=== PATIENT | male | born 1955 | race Hispanic/Latino ===

== ENCOUNTER 2024-09-05 05:07 | Observation (INO) | payer MEDICARE ==
[2024-09-03 10:32] LABS: BASOPHILS # (AUTO) 0.1 (0.0-0.1); BASOPHILS % 0.7 % (0.0-1.0); EOSINOPHILS # (AUTO) 0.2 (0.0-0.4); EOSINOPHILS % 2.3 % (0.0-6.0); HEMATOCRIT 39.6 % (38.2-49.6); HEMOGLOBIN 12.7 g/dL (14.0-18.0); LYMPHOCYTES # (AUTO) 2.1 (1.0-3.2); MEAN CORPUSCULAR HEMOGLOBIN 31.1 pg (28-32); MEAN CORPUSCULAR HGB CONC 32.1 g/dL (31-35); MEAN CORPUSCULAR VOLUME 96.8 fL (81-99); MONOCYTES # (AUTO) 0.5 (0.2-0.8); MONOCYTES % 6.8 % (4.4-11.3); NEUTROPHILS # (AUTO) 4.2 (2.1-6.9); NEUTROPHILS % 59.9 % (38.7-80.0); PLATELET COUNT 260 x10e3/uL (140-360); RED BLOOD COUNT 4.09 x10e6/uL (4.3-5.7); RED CELL DISTRIBUTION WIDTH 14.7 % (11.7-14.4); WHITE BLOOD COUNT 7.06 x10e3/uL (4.8-10.8)
[2024-09-03 10:53] LABS: INR 1.01; PARTIAL THROMBOPLASTIN TIME 28.4 seconds (23.8-35.5); PROTHROMBIN TIME 13.9 seconds (11.9-14.5)
[2024-09-03 11:01] LABS: CALCIUM 9.4 mg/dL (8.4-10.2); CREATININE, SERUM 1.3 mg/dL (0.72-1.25)
[~2024-09-05] VITALS: Ht 170.2 cm; Wt 89.8 kg
[~2024-09-05 05:07] MED LIST: ALLOPURINOL300 MG PO; ATORVASTATIN CA20 MG PO; FAMOTIDINE20 MG PO; FLOMAX0.4 MG PO; GABAPENTIN300 MG PO; NAPROXEN250 MG PO; OMEPRAZOLE40 MG PO; VASOTEC10 M1 PO; VITAMIN D250 MCG PO
[2024-09-05] MEDS: CEFAZOLIN SODIUM 2 GM ONE (06:15)
[2024-09-05] MEDS: LACTATED RINGER'S 1,000 ML ONE (06:15)
[2024-09-05] MEDS ORDERED: DEXMEDETOMIDINE HCL 2 ML ONE (07:08)
[2024-09-05] MEDS ORDERED: ACETAMINOPHEN 1000 MG/100 ML 100 ML IV ONE (07:08)
[2024-09-05] MEDS ORDERED: MIDAZOLAM HCL 2 MG/2 ML VIAL ONE (07:08)
[2024-09-05] MEDS ORDERED: ROCURONIUM BROMIDE 1 ML IV ONE (07:08)
[2024-09-05] MEDS ORDERED: LIDOCAINE HCL 2% LOCAL INJ 5 ML SDV VIAL INJ ONE (07:08)
[2024-09-05] MEDS ORDERED: SEVOFLURANE INHAL SOLN 250 ML PEN BTL ONE (07:08)
[2024-09-05] MEDS ORDERED: SODIUM CHLORIDE 0.9% 100 ML ONE (07:08)
[2024-09-05] MEDS ORDERED: PROPOFOL IV EMULSION 10 MG/ML 20 ML VIAL ONE (07:08)
[2024-09-05] MEDS ORDERED: FENTANYL CITRATE/PF 100MCG/2 ML INJ ONE (07:08)
[2024-09-05] MEDS ORDERED: KETAMINE 50MG/5ML SYR ONE (07:11)
[2024-09-05] MEDS ORDERED: FAMOTIDINE 20 MG/2 ML VIAL IV ONE (07:39)
[2024-09-05] MEDS ORDERED: ONDANSETRON HCL INJ 2MG/ML 2ML 2 MG/ML VIAL ONE (07:40)
[2024-09-05] MEDS ORDERED: DEXAMETHASONE SOD PHOS INJ 4 MG/ML SDV ONE (07:41)
[2024-09-05] MEDS ORDERED: SUGAMMADEX SODIUM 200 MG/2 ML VIAL IV ONE (08:20)
[2024-09-05] MEDS ORDERED: EPHEDRINE SULFATE INJ 50 MG/ML VIAL ONE (08:31)
[2024-09-05] MEDS ORDERED: VASOPRESSIN INJ 20 UNIT/ML VIAL ONE (09:02)
[2024-09-05] MEDS ORDERED: LACTATED RINGER'S 1,000 ML ONE (09:04)
[2024-09-05] MEDS ORDERED: HYDROCODON-ACE1 EA12 PO (09:52)
[2024-09-05] MEDS: FENTANYL CITRATE/PF 100MCG/2 ML INJ ONE (09:55)
[2024-09-05] MEDS ORDERED: ACETAMINOPHEN 325 MG TAB PO PRN (10:00)
[2024-09-05] MEDS ORDERED: PROMETHAZINE HCL (IM) 25 MG/ML VIAL IM PRN (10:00)
[2024-09-05] MEDS ORDERED: ZOLPIDEM TARTRATE 5 MG TAB PO PRN (10:00)
[2024-09-05] MEDS ORDERED: MAGNESIUM/ALUMINUM/SIMETHICONE 30 ML UDC PO PRN (10:00)
[2024-09-05] MEDS ORDERED: MORPHINE SULFATE 5 MG/ML VIAL IM PRN (10:00)
[2024-09-05] MEDS: ONDANSETRON HCL INJ 2MG/ML 2ML 2 MG/ML VIAL IV PRN (11:20)
[2024-09-05] MEDS: LACTATED RINGER'S 1,000 ML IV SCH (11:20)
[2024-09-05] MEDS: HYDROMORPHONE 2MG/ML IV PRN (11:20)
[2024-09-05 11:30] VITALS: BP 133/75; PULSE 64; RESP 18; TEMP 98; O2SAT 100
[2024-09-05 13:05] VITALS: BP 133/75; PULSE 64; RESP 18; TEMP 98; O2SAT 100
[2024-09-05] MEDS: CARISOPRODOL 350 MG TAB PO PRN (13:20)
[2024-09-05] MEDS: OXYCODONE/ACETAMINOPHEN 5-325 1 EACH TABLET PO PRN (13:20)
[2024-09-05 19:28] VITALS: BP 140/71; PULSE 78; RESP 18; TEMP 97.9; O2SAT 96
[2024-09-05 20:00] VITALS: BP 140/71; PULSE 78; RESP 18; TEMP 97.9; O2SAT 96
[2024-09-05] MEDS: FAMOTIDINE 20 MG TAB PO SCH (21:31)
[2024-09-05] MEDS: ATORVASTATIN 20 MG TAB PO SCH (21:31)
[2024-09-05] MEDS: ENALAPRIL MALEATE 10 MG TAB PO SCH (21:32)
[2024-09-05 23:15] VITALS: BP 109/70; PULSE 67; RESP 18; TEMP 97.8; O2SAT 99
[2024-09-06 03:26] VITALS: BP 133/91; PULSE 63; RESP 18; TEMP 97.8; O2SAT 98
[2024-09-06] MEDS: PANTOPRAZOLE SODIUM 20 MG TABLET.DR PO SCH (07:32)
[2024-09-06] MEDS: GABAPENTIN 300 MG CAP PO SCH (07:32)
[2024-09-06] MEDS: TAMSULOSIN HCL 0.4 MG CAP PO SCH (07:32)
[2024-09-06] MEDS: ALLOPURINOL 300 MG TAB PO SCH (07:32)
[2024-09-06 07:50] VITALS: BP 142/77; PULSE 62; RESP 18; TEMP 97.9; O2SAT 96
[2024-09-06 07:51] VITALS: BP 142/77; PULSE 62; RESP 18; TEMP 97.9; O2SAT 96
== END 2024-09-06 10:45 | disposition home or self-care (01) ==
LOC: OR 05:07 → PACU V 09:50 → MED/SURG 10:44
PROVIDERS: ADMIT Neurological Surgery; ATTEND Neurological Surgery
DX: M48.062 Spinal stenosis, lumbar region with neurogenic claudication (principal); M51.16 Intervertebral disc disorders with radiculopathy, lumbar region; Z01.810 Encounter for preprocedural cardiovascular examination; Z01.812 Encounter for preprocedural laboratory examination; Z01.818 Encounter for other preprocedural examination; I10 Essential (primary) hypertension; M10.9 Gout, unspecified; K21.9 Gastro-esophageal reflux disease without esophagitis; N40.0 Benign prostatic hyperplasia without lower urinary tract symptoms
CPT/HCPCS: 36415; 63047; 63048; 71046; 72020; 80048; 85025; 85610; 85730; 86850; 86900; 88304; 93005; G0378 ×2; J0131; J0690 ×2; J1100; J1170 ×2; J2003; J2250; J2405; J2704; J3010; J7050; J7121